=== PATIENT | female | born 1995 | race African-American/Black ===

== ENCOUNTER 2022-08-14 10:35 | Emergency (ER) | payer OTHER, SELFPAY ==
[2022-08-14] MEDS: LORazepam INJ (*CRX) 2 MG/ML VIAL IM (10:59)
[2022-08-14 11:00] VITALS: BP 143/100; PULSE 102; RESP 18; TEMP 36.9; O2SAT 99
--- NOTE | 2022-08-14 11:27 | PC.NURSE ---
EDP Jamin notified of patient being a moderate risk on Saxon Scale. Per EDP, leave sitter at bedside and continue suicide precautions.
[2022-08-14 11:56] LABS: Basophils Percent Auto 0.4 % (0.2-1.2); Eosinophils Absolute Auto 0.1 K/mm3 (0-0.3); Eosinophils Percent Auto 1.1 % (0-4.4); Hematocrit 38.4 % (37.0-47.0); Hemoglobin 12.2 g/dL (12.0-15.0); Immature Granulocyte Absolute 0.01 K/mm3 (0.00-0.031); Immature Granulocyte Percent A 0.2 % (0-0.5); Lymphocytes Absolute Auto 1.63 K/mm3 (0.9-3.2); Lymphocytes Percent Auto 35.2 % (18.3-44.2); Mean Corpuscular HGB Conc 31.8 g/dl (32-36); Mean Corpuscular Hemoglobin 26.6 pg (26-34); Mean Corpuscular Volume 83.7 fl (80-100); Mean Platelet Volume 9.9 fl (7.4-10.4); Monocytes Absolute Auto 0.3 K/mm3 (0.1-0.6); Monocytes Percent Auto 5.8 % (2.6-8.5); Neutrophils Absolute Auto 2.7 K/mm3 (1.3-6.7); Neutrophils Percent Auto 57.3 % (45.5-73.1); Platelet Count Result 310 k/mm3 (150-375); Red Blood Count 4.59 M/mm3 (4.2-5.4); Red Cell Distribution Width 15.4 % (11.5-14.5); White Blood Count 4.6 K/mm3 (4.5-10.0)
--- NOTE | 2022-08-14 12:04 | PC.NURSE ---
Patient states she is unable to urinate at this time.
[2022-08-14 12:08] LABS: Alanine Aminotransferase 14 U/L (6-35); Albumin Level 4.7 g/dL (3.5-5.1); Alkaline Phosphatase 72 U/L (38-126); Anion Gap 9 mmol/L (8-16); Aspartate Amino Transferase 23 U/L (14-36); Bilirubin,Total 0.7 mg/dL (0.2-1.3); Blood Urea Nitrogen 7 mg/dL (7-17); Calcium 9.6 mg/dL (8.4-10.2); Carbon Dioxide 25 mmol/L (22-30); Chloride 105 mmol/L (98-107); Estimated CRCL calculation 125 ml/min; Estimated Glomerular Filt Rate > 60; Ethanol < 10 mg/dL (<10); Glucose 88 mg/dL (65-110); Potassium 3.5 mmol/L (3.4-5.0); Sodium 139 mmol/L (137-145)
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
[2022-08-14 12:32] LABS: Influenza A QL RT-PCR Negative (Negative); Influenza B QL RT-PCR Negative (Negative); SARS-CoV-2 RNA PCR Negative
[2022-08-14 12:48] LABS: HIV 1/2 Ab P24 Ag Result Negative (Negative)
[2022-08-14 13:05] LABS: Appearance Urine Clear (Clear); Bilirubin Urine 1+ (Negative); Blood Urine Trace-intact (Negative); Color Urine Yellow (Yellow); Glucose Urine UA Negative (Negative); Ketones Urine 1+ mg/dL (Negative); Leukocyte Esterase Ur Negative LEU/UL (Negative); Nitrate Urine Negative (Negative); Protein Urine 1+ mg/dL (Negative)
[2022-08-14 13:18] LABS: Amphetamine Screen Urine Negative (Negative); Barbiturate Screen Urine Negative (Negative); Benzodiazepines Screen Urine Negative (Negative); Cannabinoid Screen Urine Positive (Negative); Cocaine Screen Urine Negative (Negative); Methadone Screen Urine Negative (Negative); Opiate Screen Urine Negative (Negative); Phencyclidine Screen Urine Negative (Negative)
[2022-08-14 14:04] LABS: Mucus Urine Moderate /lpf; Squamous Epithelial Cell Urine Moderate /hpf (Few); WBC Urine 0-3 /hpf
[2022-08-14 14:05] LABS: Add Urine Microscopic? YES
--- NOTE | 2022-08-14 16:08 | PC.NURSE ---
[facility] - spoke with Thao
--- NOTE | 2022-08-14 16:19 | PC.NURSE ---
[facility] FREEMAN called back, Elan, needs to call her inside sales supervisor about [facility] reddy
--- NOTE | 2022-08-14 16:45 | PC.NURSE ---
Elan POZO RN called back - wants to speak with pt over the phone. Pt refusing.
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
--- NOTE | 2022-08-14 17:36 | PC.NURSE ---
[facility] - [employer] will call back - pt will speak with [facility] FREEMAN
--- NOTE | 2022-08-14 17:37 | PC.NURSE ---
Elan POZO RN called back - spoke with pt on the phone.
--- NOTE | 2022-08-14 18:23 | PC.NURSE ---
Addendum entered by Tamela Hayes RN 08/15/22 03:37: 1822 IS THE CORRECT TIME, NOT 192. Original Note: EDUARDO Ernandez RN HERE AT 1922 TO EVALUATE PT AND SITUATION.
[2022-08-14] MEDS: DOXYCYCLINE HYCLATE 100 MG TABLET PO (21:00)
[2022-08-14] MEDS: cefTRIAXone 1 GM VIAL 0.5 GM IM (21:00)
[2022-08-14] MEDS: metroNIDAZOLE 250 MG TABLET 500 MG PO (21:01)
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
--- NOTE | 2022-08-14 23:40 | PC.NURSE ---
Thierry from [facility] called. There are no beds available tonight but we can call back in check in the morning after they have discharges.
[2022-08-15 03:51] VITALS: BP 141/87; PULSE 90; RESP 18; TEMP 37; O2SAT 100
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
== END 2022-08-15 03:52 ==
PROVIDERS: Emergency Medicine; Emergency Provider General Practice
DX: A59.00 Urogenital trichomoniasis, unspecified (principal); T74.21XA Adult sexual abuse, confirmed, initial encounter; R45.850 Homicidal ideations; Y07.9 Unspecified perpetrator of maltreatment and neglect
CPT/HCPCS: 36415; 80053; 80307; 81001; 81025; 84443; 85025; 86703; 87070; 87491; 87591; 87636; 87808; 96372; 99284; A9270; G0432; J0696; J2060